=== PATIENT | female | born 1940 | race Caucasian/White ===

== ENCOUNTER 2018-06-09 06:13 | Day surgery (SDC) | payer OTHER ==
[~2018-06-09] VITALS: Ht 147.3 cm; Wt 59.0 kg
[2018-06-09] MEDS ORDERED: fentaNYL 0.05 MG/ML VIAL ONE (08:18)
[2018-06-09] MEDS: MIDAZOLAM 2 MG/2 ML VIAL ONE (08:44)
== END 2018-06-09 10:10 | disposition home or self-care (01) ==
LOC: MOR 06:13 → MMU 06:24 → MOR 10:10
PROVIDERS: ATTEND Internal Medicine Gastroenterology
DX: K29.50 Unspecified chronic gastritis without bleeding (principal); I10 Essential (primary) hypertension; E11.9 Type 2 diabetes mellitus without complications; G47.30 Sleep apnea, unspecified; M19.90 Unspecified osteoarthritis, unspecified site; Z88.0 Allergy status to penicillin; Z88.2 Allergy status to sulfonamides; Z90.49 Acquired absence of other specified parts of digestive tract; Z98.890 Other specified postprocedural states; Z90.710 Acquired absence of both cervix and uterus; Z79.82 Long term (current) use of aspirin; Z79.4 Long term (current) use of insulin; Z79.899 Other long term (current) drug therapy; Z87.891 Personal history of nicotine dependence
CPT/HCPCS: 36415; 43239; 82948; 86677; J2250; J7030; J3010